=== PATIENT | male | born 1980 | race African-American/Black ===

== ENCOUNTER → 2020-08-03 | Outpatient (CLI) | payer OTHER | LOC: SLEEP 15:28 | DX: R40.0 Somnolence (principal); G47.33 Obstructive sleep apnea (adult) (pediatric) | CPT/HCPCS: 95810 ==

== ENCOUNTER 2020-09-04 16:27 | Emergency (ER) | payer OTHER ==
[2020-09-04 17:43] LABS: HEMOGLOBIN 14.1 gm/dl (14.0-17.5); RED BLOOD COUNT 4.33 M/UL (4.20-5.50); WHITE BLOOD COUNT 8.1 K/UL (4.5-11.0)
[2020-09-04 18:04] LABS: BUN/CREATININE RATIO 8 (0-10)
== END 2020-09-04 22:58 | disposition left against medical advice (07) ==
LOC: ER1 16:27
PROVIDERS: Student in an Organized Health Care Education/Training Program
DX: S30.811A Abrasion of abdominal wall, initial encounter (principal); S80.812A Abrasion, left lower leg, initial encounter; S50.811A Abrasion of right forearm, initial encounter; F10.129 Alcohol abuse with intoxication, unspecified; K85.90 Acute pancreatitis without necrosis or infection, unspecified; Y90.7 Blood alcohol level of 200-239 mg/100 ml; E11.9 Type 2 diabetes mellitus without complications; Z88.0 Allergy status to penicillin; Z79.84 Long term (current) use of oral hypoglycemic drugs; Z79.899 Other long term (current) drug therapy; V49.40XA Driver injured in collision with unspecified motor vehicles in traffic accident, initial encounter; Y92.410 Unspecified street and highway as the place of occurrence of the external cause
CPT/HCPCS: 70450; 71045; 71260; 72125; 80053; 82550; 82553; 82962; 83605; 83690; 83874; 84484; 85025; 85610; 85730; 86850; 86900; 86901; 93005; 99285; G0480; J7120; Q9967

== ENCOUNTER → 2020-11-17 | Outpatient (CLI) | payer OTHER | LOC: US 10-21 13:30 | DX: N63.10 Unspecified lump in the right breast, unspecified quadrant (principal); R22.1 Localized swelling, mass and lump, neck | CPT/HCPCS: 76536; 76641-RT ==